=== PATIENT | male | born 1990 | race Hispanic/Latino ===

== ENCOUNTER 2021-05-24 16:59 | Emergency (ER) | payer SELFPAY ==
[2021-05-24] MEDS ORDERED: Diphtheria,Pertussis(Acell),Tetanus Vaccine 0.5 ML Syringe IM ONE (17:20)
[2021-05-24] MEDS ORDERED: Lactated Ringers 1,000 ML IV ONE (17:20)
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
[2021-05-24] MEDS ORDERED: Sodium Chloride 0.9% 10 ML Syringe FLUSH PRN (17:42)
[2021-05-24] MEDS ORDERED: Iopamidol 612 MG/ML 50 ML SDV IVPUSH ONE (17:42)
[2021-05-24] MEDS ORDERED: Iopamidol 612 MG/ML 100 ML Bottle IVPUSH ONE (17:42)
[2021-05-24] MEDS ORDERED: LORazepam 2 MG/ML SDV IVPUSH ONE (19:22)
--- NOTE | 2021-05-25 11:35 | CT ---
CT cervical spine Technique: Multiple axial sections were obtained from above C1 inferiorly to the bottom of T1. Reconstructed coronal and sagittal images were obtained. Comparison: No prior cervical spine imaging is available. Findings: Vertebral body heights and disc spaces are maintained. Moderate bilateral neural foraminal stenosis is seen at C3-4. No other levels of central canal stenosis or neural foraminal stenosis is seen. Very minimal degenerative change is scattered within the uncovertebral joints. No fracture is noted. No abnormal subluxation is seen. Impression: 1. Slight degenerative change. Moderate bilateral neural foraminal stenosis at C3-4. 2. No acute abnormality is seen on CT study of the cervical spine. Diagnostic code #2 I agree with preliminary report from [facility], finalized on 05/24/21, 6:54 PM RESOURCE SPECIALIST, code 2
--- NOTE | 2021-05-25 11:37 | CT ---
CT chest Technique: Multiple axial sections were obtained from above the lung apices inferiorly through the lung bases. Intravenous contrast was utilized. Reconstructed coronal and sagittal images were obtained. Comparison: No prior chest imaging is available. Thoracic aorta shows no aneurysm. Mediastinum shows no adenopathy. No axillary adenopathy is seen. No pericardial thickening is seen. Small hiatal hernia is noted. Slight parenchymal density is seen within the right lung base. This may represent a small area of pulmonary contusion from previous injury if patient has no symptoms of pneumonia. Lungs otherwise are clear. No pleural effusions or pneumothorax is seen. Bone window settings were reviewed which show no acute osseous abnormality. Impression: 1. Slight density within the right lung base which most likely represents a pulmonary contusion if patient has no symptoms to suggest pre-existing pneumonia. 2. Small hiatal hernia. Diagnostic code #3 I agree with preliminary report from [facility], finalized on 05/24/21, 7:04 PM BUSINESS DIVISION CHAIR, code 1 CT abdomen and pelvis Technique: Multiple axial sections were obtained from above the dome of the diaphragm inferiorly through the pubic symphysis. Intravenous contrast was utilized. No oral contrast has been given. Reconstructed coronal and sagittal images were obtained. Comparison: No prior abdominal imaging is available. Findings: Liver shows no focal parenchymal abnormality. Small hiatal hernia is noted. Spleen size is normal. Adrenal glands show no nodule. Pancreas is within normal limits. Gallbladder contains no calcified gallstones. Kidneys show symmetric contrast enhancement. No hydronephrosis or mass is seen. Abdominal aorta shows no aneurysm. No retroperitoneal adenopathy or mesenteric abnormalities are seen. No pelvic mass or adenopathy is seen. No free fluid or inflammatory change is seen. Appendix is seen and is felt to be within normal limits. Minimal fat-containing umbilical hernia is noted. Bone window settings were reviewed. No acute osseous finding is appreciated. Impression: 1. Small hiatal hernia is noted. 2. Nothing acute is seen on CT study of the abdomen and pelvis. Diagnostic code #2 I agree with preliminary report from [facility], finalized on 05/24/21, 7:07 PM BUSINESS DIVISION CHAIR
--- NOTE | 2021-05-25 11:39 | CT ---
Head CT Technique: Multiple axial sections through the brain were obtained. Intravenous contrast was not utilized. Reconstructed coronal and sagittal images were obtained. Comparison: No prior intracranial imaging is available. Findings: Ventricles along with basal cisterns and sulci over the convexities are within normal limits for the patient's age. No abnormal parenchymal densities are seen. No evidence of intracranial hemorrhage is seen. No midline shift or mass-effect is seen. Mild mucosal thickening is seen within the left ethmoid sinuses. No acute mastoid sinus findings are seen. No acute calvarial abnormality is seen. Mild soft tissue swelling is seen within the right upper scalp. Impression: 1. Slight sinus findings as noted above which are likely chronic. 2. Minimal soft tissue swelling within the upper right scalp. 3. No acute intracranial abnormality is appreciated on noncontrast head CT study. Diagnostic code #2 I agree with preliminary report from [facility], finalized on 05/24/21, 7:01 PM [employer], code 1
== END 2021-05-24 21:22 | disposition home or self-care (01) ==
LOC: JD.ED 16:59
DX: F41.9 Anxiety disorder, unspecified (principal); R00.0 Tachycardia, unspecified
CPT/HCPCS: 36415; 70450; 71260; 72125; 74177; 80053; 85025; 86850; 86900; 86901; 96374; 99284; J2060; J7120; Q9967